=== PATIENT | female | born 1975 | race Caucasian/White ===

== ENCOUNTER 2016-12-30 04:02 | Inpatient (IN) | payer SELFPAY ==
[~2016-12-30] VITALS: Ht 167.6 cm; Wt 50.0 kg
[~2016-12-30 04:02] MED LIST: METR-1 PO
[2016-12-30 04:07] VITALS: BP 147/96; PULSE 103; RESP 16; TEMP 98.3; O2SAT 99
[2016-12-30] MEDS ORDERED: PIPERACIL-TAZO 4.5 GM PREMIX 100 ML IV ONE (04:45)
[2016-12-30] MEDS ORDERED: VANCOMYCIN INJ 1,000 MG in SODIUM CHLOR 0.9% 250 ML INJ 250 ML IV ONE (04:45)
--- NOTE | 2016-12-30 04:55 | PD ---
HPI Chief Complaint: Medication Refill Request Time Seen by Provider: 04:46 Travel History International Travel<30 days: No Contact w/Intl Traveler<30days: No Traveled to known affect area: No History of Present Illness HPI 41-year-old white female presents to emergency department requesting evaluation of a left hand infection. She states that she was admitted to [facility] a little over one week ago. She was treated by Dr. Tobias the hand surgeon. She had an incisional drainage of a deep abscess/wound infection to her left hand. She was in the hospital for 6 days. She signed out AGAINST MEDICAL ADVICE 4 days ago. She states that she has noted a small amount of drainage coming from her wound. She denies any fever or chills. No nausea vomiting. She does state that she has some stiffness her hand and decreased range of motion but she states that this is much improved than what it was earlier. PFSH Past Medical History Narrative Medical Denies skin infections, hypertension or diabetes. Diminished Hearing: No Immunizations Current: Yes Migraines: Yes Tetanus Vaccination: < 5 Years ?: Not LMP: NOW : 5 Para: 5 Tubal Ligation: Yes Past Surgical History Narrative Surgical C-sections 2, left hand incision and drainage Section: Yes (2) Gynecologic Surgery: Yes (C-SECTIONS X 2) Hysterectomy: Yes Social History Alcohol Use: No Tobacco Use: Yes (1 PPD) Substance Use: No Allergies-Medications (Allergen,Severity, Reaction): Coded Allergies: No Known Allergies (Verified , 12/30/16) Reported Meds & Prescriptions Reported Meds & Active Scripts Active No Active Prescriptions or Reported Medications Review of Systems Except as stated in HPI: all other systems reviewed are Neg General / Constitutional: No: Fever, Chills Eyes: No: Diploplia, Blurred Vision HENT: No: Headaches, Neck Pain Cardiovascular: No: Chest Pain or Discomfort, Palpitations Respiratory: No: Cough, Shortness of Breath Gastrointestinal: No: Nausea, Vomiting Genitourinary: No: Dysuria, Hematuria Musculoskeletal: Positive: Edema, Pain Skin: No Rash, No Lesions Neurologic: No: Weakness, Change in Mentation Physical Exam Narrative GENERAL: Well-developed, well-nourished in no apparent distress. Nontoxic appearing. HEAD: Normocephalic, atraumatic. EYES: Pupils equal round and reactive. Extraocular motions intact. No scleral icterus. No injection or drainage. ENT: Nose clear. Throat without erythema, tonsillar hypertrophy or exudate. Uvula midline. Airway patent. NECK: Trachea midline. Supple, nontender, moves head freely. No central bony tenderness or spasm. CARDIOVASCULAR: Regular rate and rhythm without murmurs, gallops, or rubs. RESPIRATORY: Clear to auscultation. Breath sounds equal bilaterally. No wheezes , rales, or rhonchi. GASTROINTESTINAL: Abdomen soft, non-tender, nondistended. No hepato-splenomegaly , or palpable masses. No guarding. EXTREMITIES: No clubbing, cyanosis, Examination the left upper extremity reveals wili in place on the dorsum of the hand and wrist as well as the radial aspect of the wrist. She has a iodoform packing sticking out of the proximal end of the radial wrist incision. There is a scant amount of cloudy discharge from the dorsal wound. She has mild swelling of the for hand. There is no significant erythema or warmth. She does have tenderness along the incision sites. She is able to extend her fingers and has decreased flexion. Patient has intact gross sensation and Refill. Patient has what appears to be track marinelli BACK: Nontender without deformity. No flank tenderness. NEUROLOGICAL: Awake, alert and oriented x 3 .Cranial nerves grossly intact. Motor and sensory grossly within normal limits. Normal speech. Data Data Last Documented VS Vital Signs Date Time Temp Pulse Resp B/P Pulse Ox O2 Delivery O2 Flow Rate FiO2 12/30/16 04:07 98.3 103 16 147/96 99 Room Air Orders Complete Blood Count With Diff (12/30/16 04:33) Basic Metabolic Panel (Bmp) (12/30/16 04:33) Iv Access Insert/Monitor (12/30/16 04:33) Drug Screen, Random Urine (12/30/16 04:33) Vancomycin Inj (Vancomycin Inj) (12/30/16 04:45) Piperacil-Tazo 4.5 Gm Premix (Zosyn 4.5 (12/30/16 04:45) Labs Laboratory Tests Test 12/30/16 05:10 White Blood Count 12.6 TH/MM3 Red Blood Count 4.69 MIL/MM3 Hemoglobin 13.1 GM/DL Hematocrit 39.6 % Mean Corpuscular Volume 84.4 FL Mean Corpuscular Hemoglobin 28.0 PG Mean Corpuscular Hemoglobin 33.2 % Concent Red Cell Distribution Width 14.2 % Platelet Count 494 TH/MM3 Mean Platelet Volume 6.7 FL Neutrophils (%) (Auto) 64.9 % Lymphocytes (%) (Auto) 23.1 % Monocytes (%) (Auto) 7.2 % Eosinophils (%) (Auto) 4.2 % Basophils (%) (Auto) 0.6 % Neutrophils # (Auto) 8.2 TH/MM3 Lymphocytes # (Auto) 2.9 TH/MM3 Monocytes # (Auto) 0.9 TH/MM3 Eosinophils # (Auto) 0.5 TH/MM3 Basophils # (Auto) 0.1 TH/MM3 CBC Comment DIFF FINAL Differential Comment MDM Medical Decision Making Medical Screen Exam Complete: Yes Emergency Medical Condition: Yes Medical Record Reviewed: Yes Differential Diagnosis MDM: High Differential diagnoses: Abscess, folliculitis, cellulitis, lymphangitis, abrasion, contact dermatitis Narrative Course IV access is obtained. CBC, chemistry and UDS has been sent. Patient's given vancomycin 20 mg/kg IV, 4.5 mg of Zosyn IV. The case has been discussed with Dr. Tobias. Dr. Tobias states that the patient was injecting methamphetamine into her left hand when she got her deep wound infection. The patient here denies any substance abuse. Dr. Tobias has requested that the patient be admitted to the [facility] service. I have spoken with Dr. VENTURA who has agreed to admit the patient. The patient meets Sirs and sepsis criteria. She has a elevated heart rate, white count greater than 12,000, and a source. Sepsis Criteria SIRS Criteria (2 or more): Heart rate over 90, WBC > 44860, < 4000 or > 10% bands Sepsis Criteria (SIRS+source): Infect source susp/known Criteria Outcome: Meets SIRS criteria, Meets sepsis criteria Diagnosis Primary Impression: left hand deep wound infection Admitting Information Admitting Physician Requests: Admit Scripts No Active Prescriptions or Reported Meds Condition: Enoch Montano Dec 30, 2016 04:55
[2016-12-30 05:15] LABS: AMPHETAMINE, URINE POS (NEG); BARBITURATES, URINE NEG (NEG); COCAINE, URINE NEG (NEG)
[2016-12-30 05:25] LABS: AUTOMATED NEUTROPHIL # 8.2 TH/MM3 (1.8-7.7); BASOPHIL # 0.1 TH/MM3 (0-0.2); BASOPHIL % 0.6 % (0.0-2.0); EOSINOPHIL # 0.5 TH/MM3 (0-0.4); EOSINOPHIL % 4.2 % (0.0-4.0); HEMATOCRIT 39.6 % (35.0-46.0); HEMO FLAGS DIFF FINAL; LYMPH % 23.1 % (9.0-44.0); LYMPHOCYTE # 2.9 TH/MM3 (1.0-4.8); MEAN CELL VOLUME 84.4 FL (80.0-100.0); MEAN CORPUSCULAR HGB CONC 33.2 % (32.0-36.0); MONO % 7.2 % (0.0-8.0); NEUT % 64.9 % (16.0-70.0); PLATELET COUNT 494 TH/MM3 (150-450); RED BLOOD COUNT 4.69 MIL/MM3 (4.00-5.30); RED CELL DISTRIBUTION WIDTH 14.2 % (11.6-17.2); WHITE BLOOD COUNT 12.6 TH/MM3 (4.0-11.0)
[2016-12-30] MEDS ORDERED: SODIUM CHLOR 0.9% 1000 ML INJ 1,000 ML IV SCH (05:36)
[2016-12-30 05:44] LABS: POTASSIUM 3.8 MEQ/L (3.5-5.1)
[2016-12-30] MEDS ORDERED: SODIUM CHLORIDE 0.9% FLUSH 5 ML FLUSH FLUSH PRN (05:45)
[2016-12-30] MEDS ORDERED: ACETAMINOPHEN 325 MG TAB PO PRN (05:45)
[2016-12-30] MEDS ORDERED: BISACODYL 10 MG SUPP PR PRN (05:45)
[2016-12-30] MEDS ORDERED: Vancomycin Consult Pharmacy 1 EA OTHER SCH (05:45)
[2016-12-30] MEDS ORDERED: ONDANSETRON HCL 4 MG/2 ML VIAL IVP PRN (05:45)
[2016-12-30 06:48] VITALS: BP 138/78; PULSE 87; RESP 18; TEMP 97.8; O2SAT 98
[2016-12-30] MEDS ORDERED: SODIUM CHLORIDE 0.9% FLUSH 5 ML FLUSH FLUSH SCH (09:00)
[2016-12-30] MEDS ORDERED: CEFEPIME INJ 1,000 MG in SODIUM CHLORIDE 0.9% INJ 100 ML IV SCH (18:00)
== END 2016-12-30 08:44 | disposition left against medical advice (07) | DRG 603 ==
LOC: NEPB 04:02 → NEDA 05:30 → NEPGCP 06:35
PROVIDERS: ADMIT Family Medicine; ATTEND Family Medicine
DX: L08.9 Local infection of the skin and subcutaneous tissue, unspecified (principal)
CPT/HCPCS: 80048; 80307; 85025; 96374; J2543; J3370; J7050